=== PATIENT | male | born 1980 | race Two or more races ===

== ENCOUNTER 2018-07-31 01:58 | Emergency (ER) | payer OTHER ==
[2018-07-31] MEDS ORDERED: NS 1,000 ML IV ONE (02:09)
[2018-07-31] MEDS ORDERED: HYOSCYAMINE SULFATE 0.125 MG TAB PO ONE (02:22)
[2018-07-31] MEDS ORDERED: MAG HYDROX/AL HYDROX/SIMETH 30 ML UDCUP PO ONE (02:22)
[2018-07-31] MEDS ORDERED: LIDOCAINE 2% VISCOUS 15 ML UDCUP PO ONE (02:22)
--- NOTE | 2018-07-31 02:25 | EDPHY ---
H & P Stated Complaint: CP and sob , start 1630, awoke with tonye, cp in [place] 3 wk ago Source: Patient - Personal History Current Tetanus/Diphtheria Vaccine: Unsure - Medical/Surgical History Hx Asthma: No Hx Chronic Respiratory Disease: No Hx Diabetes: No Hx Cardiac Disease: No Hx Renal Disease: No Hx Cirrhosis: No Hx Alcoholism: No Hx HIV/AIDS: No Hx Splenectomy or Spleen Trauma: No Other PMH: HTN, HERNIA SURG - Social History Smoking Status: Never smoked Time Seen by Provider: 07/31/18 02:22 HPI/ROS: HPI CHIEF COMPLAINT: Chest pain. HISTORY OF PRESENT ILLNESS: Very pleasant 38-year-old male, does have a history of hypertension, presents emergency chest pain. Patient states this woke him from sleep at 12 30 at night. It is now 230 in the morning. The pain is still present. Describes a burning sensation left side of his chest and somewhat substernal. Denies any radiation of pain down the arm or neck. Denies nausea. Patient states he had another episode of this earlier yesterday around 430 in the afternoon. It lasted 2 hr. Resolved on its own. He additionally reports to me that he had this for weeks ago was seen at a hospital in [place] and had an EKG was told everything was fine. Was recommended to be put on stomach acid medicine.. Patient denies cough, pleuritic pain, leg swelling. Denies fever. Patient states he has had this discomfort now for 2 hr. He denies any nausea or vomiting. He staying at a local hotel. He resides in [facility]. Past Medical History: Hypertension Past Surgical History: No recent surgery Social History: Lives in [facility]. Often travels for work. Works for [employer]. He denies drugs alcohol tobacco. Family History: Patient reports significant family history of cardiovascular disease including [place] in his father at age 50 with stent. ROS REVIEW OF SYSTEMS: 10 Systems were reviewed and negative with the exception of the elements mentioned in the history of present illness. Exam Constitutional appears well nontoxic no acute distress triage nursing summary reviewed, vital signs reviewed, awake/alert. Eyes normal conjunctivae and sclera, EOMI, PERRLA. HENT normal inspection, atraumatic, moist mucus membranes, no epistaxis, neck supple/ no meningismus, no raccoon eyes. Respiratory clear to auscultation bilaterally, normal breath sounds, no respiratory distress, no wheezing. Cardiovascular rate normal, regular rhythm, no murmur, no edema, distal pulses normal. Gastrointestinal soft, non-tender, no rebound, no guarding, normal bowel sounds, no distension, no pulsatile mass. Genitourinary no CVA tenderness. Musculoskeletal no midline vertebral tenderness, full range of motion, no calf swelling, no tenderness of extremities, no meningismus, good pulses, neurovascularly intact. Skin pink, warm, & dry, no rash, skin atraumatic. Neurologic awake, alert and oriented x 3, AAOx3, moves all 4 extremities equally, motor intact, sensory intact, CN II-XII intact, normal cerebellar, normal vision, normal speech. Psychiatric normal mood/affect. Heme/Lymph/Immune no lymphadenopathy. Differential diagnosis includes but is not limited to: ACS, atypical chest pain , pneumothorax, pneumonia, pulmonary embolism, aortic dissection, congestive heart failure, tumor, musculoskeletal pain, esophageal pain, GERD, peptic ulcer disease, pancreatitis Medical Decision Making: Plan for this patient IV establishment with blood draw , cardiac monitoring, EKG, troponin, rule out acute coronary syndrome. GI cocktail to see if this improves his discomfort. Re-evaluation: EKG interpretation by me on record in [employer] system. Impression time of EKG 2:13 a.m., sinus rhythm rate of [address] elevation no signs of ST depression. T-wave abnormality lead 3 otherwise unremarkable. Repeat EKG time 5:49 a.m., sinus rhythm rate of 63, early Re-hector patterns. without acute ischemia. Repeat troponin 0.00. Further discussion with the patient at 6:00 a.m.. He still has some left-sided chest discomfort. It is not completely resolved. He does have a 2nd troponin is negative. EKG is really not concerning for ischemia. However further discussed with patient does have left-sided chest discomfort ongoing. Was not relieved by GI cocktail. Additionally has a family history significant for cardiac disease. I did state the patient go home however he does not feel comfortable this time he is from out of town living at a hotel has ongoing chest discomfort. Plan will be for observation today for chest pain. Further evaluation. Spoke with Dr. Singletary. agrees to admit. (Thom Reynolds) Constitutional: Initial Vital Signs Temperature (C) 37 C 07/31/18 02:04 Heart Rate 88 07/31/18 02:04 Respiratory Rate 20 07/31/18 02:04 Blood Pressure 133/96 H 07/31/18 02:04 O2 Sat (%) 97 07/31/18 02:04 O2 Delivery Mode Room Air Allergies/Adverse Reactions: No Known Allergies Allergy (Unverified 07/31/18 02:04) Home Medications: Medication Instructions Recorded Losartan Potassium [Cozaar 25 mg 25 mg PO DAILY 07/31/18 (*)] Medical Decision Making Other Provider: The patient had been boarded in the emergency department awaiting an inpatient bed. He is ruled out for his myocardial infarction. A stress test will be ordered from the emergency department. If this is negative the patient will be discharged home and not be admitted to the hospital. The patient did undergo an adequate exercise stress test which demonstrated no evidence of ischemia. This was reviewed with our lawn specialist Dr. Marquez. At this point time I do feel the patient can be discharged home with customary aftercare instructions and return precautions. He is advised to follow up with primary care and Cardiology for further outpatient evaluation. (Live Turner) - Data Points Laboratory Results: Laboratory Results 07/31/18 02:17 07/31/18 02:17 Medications Given: Discontinued Medications Al Hydroxide/Mg Hydroxide (Maalox Susp) 30 ml PO ONCE ONE Stop: 07/31/18 02:23 Last Admin: 07/31/18 02:38 Dose: 30 ml Hyoscyamine Sulfate (Levsin, Hyomax-Sl) 0.25 mg PO ONCE ONE Stop: 07/31/18 02:23 Last Admin: 07/31/18 02:38 Dose: 0.25 mg Sodium Chloride (Ns) 1,000 mls @ 0 mls/hr IV EDNOW ONE; Wide Open PRN Reason: Protocol Stop: 07/31/18 02:10 Last Admin: 07/31/18 02:22 Dose: 1,000 mls Sodium Chloride (Ns) 500 mls @ 1,000 mls/hr IV EDNOW ONE PRN Reason: Protocol Stop: 07/31/18 07:00 Last Admin: 07/31/18 06:33 Dose: 500 mls Lidocaine (Lidocaine 2% Viscous) 15 ml PO ONCE ONE Stop: 07/31/18 02:23 Last Admin: 07/31/18 02:38 Dose: 15 ml Nitroglycerin (Nitrostat) 0.4 mg SL EDNOW ONE Stop: 07/31/18 06:09 Last Admin: 07/31/18 06:21 Dose: 0.4 mg Point of Care Test Results: Chemistry 07/31/18 07/31/18 05:50 02:18 POC Troponin I 0.00 ng/mL ng/mL 0.00 ng/mL ng/mL (0.00-0.08) (0.00-0.08) Departure - Departure Disposition: Home, Routine, Self-Care Clinical Impression: Chest pain Qualifiers: Chest pain type: unspecified Qualified Code(s): R07.9 - Chest pain, unspecified Condition: Fair Instructions: Chest Pain (ED) Additional Instructions: 1. The testing done in the emergency department today demonstrates no cardiac abnormality. 2. I do recommend following up with Cardiology as an outpatient. 3. Please return to the ED for markedly worsening symptoms or other concerns. Referrals: Chen Marquez MD [Medical Doctor] - As per Instructions
[2018-07-31 02:26] LABS: PLATELET COUNT 264 10^3/uL (150-400)
[2018-07-31] MEDS ORDERED: NITROGLYCERIN 0.4 MG BTL SL ONE (06:08)
[2018-07-31] MEDS ORDERED: NS 500 ML IV ONE (06:31)
--- NOTE | 2018-07-31 07:10 | CPEKG ---
Test Reason : OPEN Blood Pressure : / mmHG Vent. Rate : 079 BPM Atrial Rate : 078 BPM P-R Int : 155 ms QRS Dur : 106 ms QT Int : 389 ms P-R-T Axes : 066 -12 014 degrees QTc Int : 447 ms Sinus rhythm Probable left atrial enlargement Confirmed by Thom Reynolds ([id number]) on 07/31/2018 7:09:27 AM Also confirmed by Thom Reynolds ([id number]) on 07/31/2018 7:09:35 AM Referred By: Confirmed By:Thom Reynolds
--- NOTE | 2018-07-31 07:10 | CPEKG ---
Test Reason : OPEN Blood Pressure : / mmHG Vent. Rate : 063 BPM Atrial Rate : 062 BPM P-R Int : 162 ms QRS Dur : 104 ms QT Int : 408 ms P-R-T Axes : 026 072 062 degrees QTc Int : [address] elev, probable normal early repol pattern Confirmed by Thom Reynolds ([id number]) on 07/31/2018 7:09:28 AM Also confirmed by Thom Reynolds ([id number]) on 07/31/2018 7:09:36 AM Referred By: Confirmed By:Thom Reynolds
[2018-07-31] MEDS ORDERED: ONDANSETRON DISINTEGRATING 4 MG TAB PO PRN (07:24)
[2018-07-31] MEDS ORDERED: ONDANSETRON 4 MG/2 ML VIAL IVP PRN (07:24)
[2018-07-31] MEDS ORDERED: ACETAMINOPHEN 325 MG TAB PO PRN (07:24)
[2018-07-31] MEDS ORDERED: NITROGLYCERIN 0.4 MG BTL SL PRN (07:39)
--- NOTE | 2018-07-31 11:58 | CPR ---
PROCEDURE: Exercise treadmill test. SUPERVISING CYBER INCIDENT ANALYST: Hui Marquez INDICATION FOR PROCEDURE: Chest pressure. PRE: After obtaining informed consent, patient was placed on electrocardiogram. Initial EKG shows s inus rhythm, normal axis, no significant ST or T-wave abnormalities suggesting of ischemia. Patient denies any chest pain, pressure or symptoms suggesting of ischemia. Initial blood pressure of 120/82 , saturating 94% on room air. STRESS: Following standard [place] protocol, patient was placed on exercise treadmill, with the follow ing findings: 1. Patient exercised for 9 minutes and 25 seconds. 2. 10.5 METS. 3. Patient obtained a heart rate of 183 beats per minute, which was 99% of his maximum predicted hea rt rate. 4. Patient had no significant ST shift at peak exercise suggesting of ischemia. 5. Patient had no chest pain, pressure, or symptoms suggesting of ischemia during exercise stress. 6. BP response resting 120/82, peak 174/98. 7. Patient had no arrhythmias noted during rest, stress, or recovery phase. 8. SpO2 remained greater than 90% throughout testing. 9. Testing was stopped due to maximum effort. 10. Barnes treadmill score of 9 placing patient at low cardiovascular risk. RECOVERY: Patient recovered for 5 minutes with returning of his heart rate back to baseline. Blood pressure did decrease to 128/80 after 5 minutes of rest. No arrhythmias noted. Patient remained asy mptomatic. IMPRESSION: 38-year-old male admitted for chest pressure with noted negative troponins x2, undergoin g exercise treadmill testing for further risk analysis. No significant ST shifts at peak exercise torre ggesting of ischemia. No arrhythmias. Normal BP response. Barnes treadmill score of 9 placing him at low cardiovascular risk. Results called to Dr. Turner in the emergency department. /[id number]/MODL
[2018-07-31 12:02] VITALS: BP 110/83
--- NOTE | 2018-07-31 14:32 | HOSPPROG ---
Hospitalist Progress Note Assessment/Plan: Patient was originally assigned to my service this morning. I ordered Treadmill stress test based on chart review to evaluate patient's reported chest pain. This test was performed and test results were given to patient by ED staff. Patient was then discharged by ED staff prior to myself personally interviewing and examining patient. Objective: Vital Signs Temp Pulse Resp BP Pulse Ox 36.7 C 77 18 110/83 H 98 07/31/18 12:00 07/31/18 12:00 07/31/18 12:00 07/31/18 12:00 07/31/18 12:00 ICD10 Worksheet Patient Problems: Problems Problem Status Onset Chest pain Acute
== END 2018-07-31 12:02 | disposition home or self-care (01) ==
LOC: UNDOADMOB 06:08
DX: R07.9 Chest pain, unspecified (principal); I10 Essential (primary) hypertension; E86.9 Volume depletion, unspecified
CPT/HCPCS: 84484-PO